=== PATIENT | female | born 1960 | race Hispanic/Latino ===

== ENCOUNTER 2020-08-30 00:50 | Emergency (ER) | payer MEDICARE, OTHER ==
[~2020-08-30] VITALS: Ht 157.5 cm; Wt 82.5 kg
--- NOTE | 2020-08-30 12:48 | EKG ---
[facility] [address], [place] [address] Signed Normal sinus rhythm Normal ECG Confirmed by MARLYN RUIZ DO ([id number]) on 08/30/2020 12:48:24 PM Electronically Signed By: MARLYN RUIZ DO 08/30/20 1248 PATIENT NAME: PETROS HAMMONDS Electrocardiogram DATE OF : 64 PHYSICIAN: MARLYN RUIZ DO REPORT #: [id number] REPORT IS CONFIDENTIAL AND NOT TO BE RELEASED WITHOUT AUTHORIZATION
== END 2020-08-30 04:50 | disposition home or self-care (01) ==
LOC: ED 00:50
DX: R07.81 Pleurodynia (principal); I10 Essential (primary) hypertension
CPT/HCPCS: 71045; 80053; 83735; 84484; 85025; 85379; 93005; 93010; 99285-25